=== PATIENT | male | born 1950 | race Caucasian/White ===

== ENCOUNTER 2017-01-11 09:45 | Outpatient (CLI) | payer OTHER, MEDICARE ==
[~2017-01-11] VITALS: Ht 162.6 cm; Wt 85.5 kg
[~2017-01-11 09:45] MED LIST: ANDRONATE200 MG/ML IM; ASPIRIN E.C. 8181 MG PO; CELEBREX 1100 MG/CAP PO; CELEBREX 200MG200 MG PO; CELEBREX100 MG PO; CLONAZEPAM1 MG PO; EFFEXOR 75M75 MG/TAB PO; EFFIENT10 MG PO; FENTANYL 25 MCG TD; FLEXERIL5 MG PO; GLUCOPHAGE500 MG/TAB PO; HYDROCHLOR50 MG PO; KLONOPIN 0.5MG0.5 MG PO; LOPID600 MG PO; LOPRESSOR 225 MG/TAB PO; LOPRESSOR 550 MG/TAB PO; LORTAB 5/500 501 TAB PO; LORTAB 7.5/5001 TAB PO; LYRICA 75MG CAP75 MG PO; MEDROL 4MG DOSPA4 MG PO; NITROSTAT0.4 MG/TAB SL; NORCO 325 MG-7.1 TAB PO; OMNICEF 300MG300 MG PO; PERCR 7.5 PO; PRINIVIL10 MG PO; PROBIOTIC FORMU1 CAP PO; PROCARDIA XL 6060 MG PO; REQUIP 0.5MG0.5 MG PO; REQUIP0.5 MG PO; VENLAFAXINE75 M1 PO; ZOCOR 20MG20 MG PO; ZOCOR10 MG PO
[2017-01-11 10:01] VITALS: BP 117/54; PULSE 58
[2017-01-11] MEDS ORDERED: PERCOCET 325 MG1 TAB PO (10:16)
[2017-01-11 11:15] VITALS: BP 122/75; PULSE 63
[2017-01-11 11:20] VITALS: BP 122/75; PULSE 65
[2017-01-11 11:30] VITALS: BP 137/82; PULSE 70
[2017-01-11 11:45] VITALS: BP 128/79; PULSE 71; TEMP 96.9
[2017-01-11 12:00] VITALS: BP 118/75; PULSE 67
== END 2017-01-11 12:18 | disposition home or self-care (01) ==
LOC: COL.RAD 09:45
DX: M47.22 Other spondylosis with radiculopathy, cervical region (principal); M48.02 Spinal stenosis, cervical region
CPT/HCPCS: Q9967

== ENCOUNTER 2017-03-14 11:15 | Outpatient (RCR) | payer OTHER, MEDICARE ==
[~2017-03-14 11:15] MED LIST changes: +PERCOCET 325 MG1 TAB PO
== END 2017-03-21 11:59 ==
LOC: WSPT 11:15
DX: M54.81 Occipital neuralgia (principal)
CPT/HCPCS: G8981-GP; G8982-GP

== ENCOUNTER 2017-08-21 12:21 | Outpatient (RCR) | payer OTHER | END 2017-11-19 | disposition home or self-care (01) | LOC: MKS.ESL.PT | DX: E11.42 Type 2 diabetes mellitus with diabetic polyneuropathy (principal) ==

== ENCOUNTER 2017-10-08 14:00 | Outpatient (RCR) | payer OTHER | END 2017-11-19 | disposition home or self-care (01) | LOC: MKS.ESL.PT | DX: E11.42 Type 2 diabetes mellitus with diabetic polyneuropathy (principal) ==

== ENCOUNTER → 2018-02-21 | Outpatient (CLI) | payer OTHER, MEDICARE | LOC: MHCPAIN 09:14 | DX: G89.29 Other chronic pain (principal); M47.817 Spondylosis without myelopathy or radiculopathy, lumbosacral region; M54.16 Radiculopathy, lumbar region; M53.3 Sacrococcygeal disorders, not elsewhere classified | CPT/HCPCS: G0463 ==

== ENCOUNTER 2018-10-21 13:17 | Outpatient (RCR) | payer OTHER, MEDICARE ==
[2019-01-06] MEDS ORDERED: EFFIENT10 MG PO (10:59)
[2019-01-06] MEDS ORDERED: MOBIC15 MG PO (10:59)
[2019-01-06] MEDS ORDERED: GLUCOPHAGE500 MG/TAB PO (11:06)
[2019-01-09] MEDS ORDERED: PROTONIX 40MG T40 MG PO (09:19)
[2019-01-09] MEDS ORDERED: FERROUS SU325 MG/TAB PO (09:28)
== END 2019-01-19 ==
LOC: MKS.ESL.PT
DX: E11.9 Type 2 diabetes mellitus without complications (principal); G63 Polyneuropathy in diseases classified elsewhere

== ENCOUNTER 2018-11-18 09:15 | Outpatient (RCR) | payer OTHER, MEDICARE ==
[2019-01-06] MEDS ORDERED: MOBIC15 MG PO (10:59)
[2019-01-06] MEDS ORDERED: EFFIENT10 MG PO (10:59)
[2019-01-06] MEDS ORDERED: GLUCOPHAGE500 MG/TAB PO (11:06)
[2019-01-09] MEDS ORDERED: PROTONIX 40MG T40 MG PO (09:19)
[2019-01-09] MEDS ORDERED: FERROUS SU325 MG/TAB PO (09:28)
== END 2019-01-19 | disposition home or self-care (01) ==
LOC: MKS.ESL.PT
DX: E11.9 Type 2 diabetes mellitus without complications (principal); G63 Polyneuropathy in diseases classified elsewhere

== ENCOUNTER 2019-01-06 09:36 | Inpatient (IN) | payer OTHER, MEDICARE ==
[~2019-01-06] VITALS: Ht 162.6 cm; Wt 68.4 kg
[2019-01-06] VITALS (395 sets, daily range): BP systolic 147–153; BP diastolic 85–89; PULSE 105–109; TEMP 98.1–98.8; O2SAT 94–100
[2019-01-06 10:24] LABS: BASO % 0.5 % (0.0-2.0); GRAN % 75.9 % (42.2-75.2); HEMATOCRIT 44.1 % (42.0-52.0); HEMOGLOBIN 14.7 g/dl (13.5-18.0); LYMPH # 1.5 (1.2-3.4); LYMPH % 18.6 % (20.0-51.0); MEAN CELL VOLUME 94 fl (80.0-100.0); MEAN CORPUSCULAR HEMOGLOBIN 31 pg (27.0-31.0); MEAN CORPUSCULAR HGB CONC 33 g/dl (33.0-37.0); MEAN PLATELET VOLUME 10.4 fl (7.4-10.4); MONO # 0.4 (0.1-0.6); MONO % 4.6 % (1.7-9.3); PLATELET COUNT 189 K/mm3 (130-400); RED BLOOD COUNT 4.68 M/mm3 (4.20-5.60); REDCELL DISTRIBUTION WIDTH-CV 12.9 % (11.5-14.5)
[2019-01-06 10:35] LABS: ALBUMIN 4.5 gm/dL (3.5-5.0); BILIRUBIN,TOTAL 0.5 mg/dL (0.0-1.0); C-REACTIVE PROTEIN 0.6 mg/dL (0.0-0.9); CALCIUM 9.9 mg/dL (8.4-10.2); CREATININE, serum 1.46 (0.66-1.25)
[2019-01-06 10:36] LABS: POTASSIUM 5.8 mmol/L (3.4-5.0)
[2019-01-06] MEDS ORDERED: EFFIENT10 MG PO (10:59)
[2019-01-06] MEDS ORDERED: MOBIC15 MG PO (10:59)
[2019-01-06] MEDS ORDERED: GLUCOPHAGE500 MG/TAB PO (11:06)
[2019-01-06 12:04] LABS: COLLECTION METHOD CLEAN CATCH
[2019-01-06 12:10] LABS: PH 6 (5-8); SQUAMOUS EPITHELIAL None Seen /hpf; URINE APPEARANCE Clear; URINE BACTERIA None Seen /hpf; URINE BILIRUBIN Negative (NEGATIVE); URINE BLOOD 1+ (NEGATIVE); URINE COLOR Straw; URINE GLUCOSE Negative (NEGATIVE); URINE KETONE 1+ (NEGATIVE); URINE LEUKOCYTE ESTERASE Negative (NEGATIVE); URINE NITRATE Negative (NEGATIVE); URINE PROTEIN(semi-quant) Negative (NEGATIVE); URINE RBC 0-2 /hpf; URINE UROBILINOGEN Negative (NEGATIVE)
[2019-01-06 13:33] LABS: CALCIUM 8.9 mg/dL (8.4-10.2); CREATININE, serum 1.33 (0.66-1.25)
[2019-01-06 13:37] LABS: POTASSIUM 6.1 mmol/L (3.4-5.0)
--- NOTE | 2019-01-06 15:30 | NUR ---
PATIENT ARRIVES FROM ED AT THIS TIME. HE AMBULATES FROM CART TO BED. NO S/S DIZZINESS OR WEAKNESS. HE IS PALE AND DIAPHORETIC. VS WNL. ST ON TELE. PATIENT ORIENTED TO ROOM AND CALL LIGHT WITHIN REACH. WILL CONTINUE TO MONITOR.
[2019-01-06 16:07] LABS: HEMATOCRIT 35.1 % (42.0-52.0); HEMOGLOBIN 11.7 g/dl (13.5-18.0)
--- NOTE | 2019-01-06 17:12 | NUR ---
DR. EUCEDA HERE TO SEE PATIENT
[2019-01-06 18:33] LABS: INR 1.1 (0.8-3.0); PROTHROMBIN TIME 12.6 SECONDS (9.7-12.8)
[2019-01-06 19:50] LABS: CREATININE, serum 1.27 (0.66-1.25); POTASSIUM 4.6 mmol/L (3.4-5.0)
[2019-01-06 19:52] LABS: HEMOGLOBIN 11.9 g/dl (13.5-18.0)
[2019-01-06 19:56] LABS: HEMATOCRIT 35.5 % (42.0-52.0)
[2019-01-07] VITALS (970 sets, daily range): BP systolic 141–203; BP diastolic 74–93; PULSE 75–127; TEMP 97.4–98.9; O2SAT 93–100
[2019-01-07 01:17] LABS: HEMATOCRIT 33.8 % (42.0-52.0); HEMOGLOBIN 11.4 g/dl (13.5-18.0)
[2019-01-07 05:40] LABS: BASO % 0.3 % (0.0-2.0); GRAN # 4.9 (1.4-6.5); GRAN % 61.5 % (42.2-75.2); LYMPH # 2.3 (1.2-3.4); LYMPH % 29.4 % (20.0-51.0); MEAN CELL VOLUME 94 fl (80.0-100.0); MEAN CORPUSCULAR HEMOGLOBIN 32 pg (27.0-31.0); MEAN CORPUSCULAR HGB CONC 34 g/dl (33.0-37.0); MEAN PLATELET VOLUME 10.4 fl (7.4-10.4); MONO # 0.7 (0.1-0.6); MONO % 8.4 % (1.7-9.3); PLATELET COUNT 163 K/mm3 (130-400); RED BLOOD COUNT 3.46 M/mm3 (4.20-5.60); REDCELL DISTRIBUTION WIDTH-CV 13.2 % (11.5-14.5)
[2019-01-07 05:42] LABS: HEMATOCRIT 32.4 % (42.0-52.0)
[2019-01-07 06:00] LABS: ALBUMIN 3.5 gm/dL (3.5-5.0); BILIRUBIN,TOTAL 0.3 mg/dL (0.0-1.0); CREATININE, serum 1.38 (0.66-1.25); POTASSIUM 4.4 mmol/L (3.4-5.0); TOTAL PROTEIN 5.5 gm/dL (6.4-8.2)
--- NOTE | 2019-01-07 07:20 | NUR ---
gave report to aura orozco.
--- NOTE | 2019-01-07 07:25 | NUR ---
Pt off unit to Endo for procedure
--- NOTE | 2019-01-07 09:17 | NUR ---
Initial visit; Patient thanked [employer] for looking in on him and offering God's blessings.
[2019-01-07 16:13] LABS: HEMOGLOBIN 10.2 g/dl (13.5-18.0)
[2019-01-07 16:22] LABS: HEMATOCRIT 30.5 % (42.0-52.0)
[2019-01-08] VITALS (175 sets, daily range): BP systolic 134–155; BP diastolic 64–100; PULSE 73–107; TEMP 97.6–98.8; O2SAT 95–100
[2019-01-08 06:14] LABS: BASO % 0.4 % (0.0-2.0); GRAN # 4.4 (1.4-6.5); GRAN % 65.7 % (42.2-75.2); LYMPH # 1.8 (1.2-3.4); LYMPH % 26.8 % (20.0-51.0); MEAN CELL VOLUME 96 fl (80.0-100.0); MEAN CORPUSCULAR HGB CONC 33 g/dl (33.0-37.0); MEAN PLATELET VOLUME 10.6 fl (7.4-10.4); MONO # 0.5 (0.1-0.6); MONO % 6.7 % (1.7-9.3); PLATELET COUNT 142 K/mm3 (130-400); REDCELL DISTRIBUTION WIDTH-CV 13.2 % (11.5-14.5)
[2019-01-08 06:15] LABS: HEMATOCRIT 27.7 % (42.0-52.0); HEMOGLOBIN 9.1 g/dl (13.5-18.0); MEAN CORPUSCULAR HEMOGLOBIN 31 pg (27.0-31.0)
[2019-01-08 06:22] LABS: ALBUMIN 3.4 gm/dL (3.5-5.0); BILIRUBIN,TOTAL 0.3 mg/dL (0.0-1.0); CALCIUM 8.9 mg/dL (8.4-10.2); CREATININE, serum 1.39 (0.66-1.25); MAGNESIUM 1.4 mg/dL (1.6-2.3); POTASSIUM 4.5 mmol/L (3.4-5.0); TOTAL PROTEIN 5.5 gm/dL (6.4-8.2)
--- NOTE | 2019-01-08 07:20 | NUR ---
Bedside shift report received from DRU Aly. Patient taken to colonoscopy by 2 Endoscopy nurses at this time. Assessment to be completed upon patient return to ICU post procedure.
--- NOTE | 2019-01-08 08:06 | NUR ---
Endoscopy report received from RN at this time. Patient tolerated procedure well and will be transferred back to ICU bed 4.
--- NOTE | 2019-01-08 08:10 | NUR ---
Patient transferred back into ICU by 2 Endo nurses with no complications. Patient connected to bedside monitor, vital signs stable. Full assessment completed. Call light placed within reach. Side rails up x3. Bed in lowest position.
--- NOTE | 2019-01-08 10:00 | NUR ---
Dr. Escalante notified of patient's heart rate in the 120's. Verbal order received from Dr. Escalante to increase the patient's high telemetry alarm limit to 130 at this time.
--- NOTE | 2019-01-08 10:59 | NUR ---
SW met with patient and to discuss discharge planning. Patient reports he lives alone currently because him and his are separted. Patient's continue to be supportive as well as patient's daughter and brother. Patient's PCP is Dr Krishna and he obtains prescriptions from [facility]. Patient denies difficulties obtaining medications. Patient rpeorts he has a cane and walker at home if needed. Patient and report independence with all ADLs and does not use any home health services. Patient reports his is his DPOA-HC. Patient is not interested in changing or updating his DPOA-HC. A copy is in the EMR. [facility] informed that patient is looking for new low income housing. [facility] provided the phone number for the [employer] [employer]. Patient and report they have already been in contact with the [employer] [employer]. [facility] does not anticipate any discharge needs but will continue to follow.
--- NOTE | 2019-01-08 16:48 | NUR ---
Patient transferred to medical bed 308 via wheelchair with no complications. All personal belongings moved with patient. Once in room 308, bed in lowest position, call light placed within reach, and side rails up x2. Patient is ambulatory and independent. Care handed over to medical RN at this time.
--- NOTE | 2019-01-08 17:35 | NUR ---
Pt assessment complete. Pt is walking independent in room. He is A/O x3. His breathing is even and unlabored on RA. Lungs CTA. Pt denies SOB. Pt currently denies any pain. No N/V. He does report that he is passing gas. POC discussed with patient who verbalizes understanding. No needs at this time. Call light within reach.
[2019-01-08 21:31] LABS: HEMATOCRIT 27.3 % (42.0-52.0); HEMOGLOBIN 9.1 g/dl (13.5-18.0)
--- NOTE | 2019-01-08 22:08 | NUR ---
Report received from DRU Basilio. Patient resting in bed. Denies having any pain at this time. Bowels active. Alert and oriented. Pulses strong. IV patent, flushed. Denies any further needs at this time. Call light within reach.
[2019-01-09 00:10] VITALS: BP 131/50; PULSE 85; TEMP 98.9
[2019-01-09 03:11] VITALS: BP 122/77; PULSE 88; TEMP 99.2
--- NOTE | 2019-01-09 05:45 | NUR ---
Patient had very uneventful night. Patient resting in bed. No insulin required. Denied any needs throughout the night. Call light within reach.
[2019-01-09 06:21] LABS: BASO % 0.5 % (0.0-2.0); GRAN # 3.5 (1.4-6.5); GRAN % 57.9 % (42.2-75.2); LYMPH % 33.4 % (20.0-51.0); MEAN CELL VOLUME 94 fl (80.0-100.0); MEAN CORPUSCULAR HGB CONC 34 g/dl (33.0-37.0); MEAN PLATELET VOLUME 10.5 fl (7.4-10.4); MONO # 0.5 (0.1-0.6); PLATELET COUNT 149 K/mm3 (130-400); RED BLOOD COUNT 2.88 M/mm3 (4.20-5.60); REDCELL DISTRIBUTION WIDTH-CV 13.2 % (11.5-14.5)
[2019-01-09 06:34] LABS: CALCIUM 9.6 mg/dL (8.4-10.2); CREATININE, serum 1.34 (0.66-1.25); MAGNESIUM 1.5 mg/dL (1.6-2.3)
[2019-01-09 06:41] LABS: HEMATOCRIT 27.1 % (42.0-52.0); HEMOGLOBIN 9.1 g/dl (13.5-18.0); MEAN CORPUSCULAR HEMOGLOBIN 32 pg (27.0-31.0)
--- NOTE | 2019-01-09 06:48 | NUR ---
Report given to DRU Basilio.
[2019-01-09 07:27] VITALS: BP 140/71; PULSE 95; TEMP 97.3
--- NOTE | 2019-01-09 07:48 | NUR ---
Pt assessment complete. Pt is up walking in room this AM. He is independent in room. He is A/O x3. His breathing is even and unlabored on RA, pt denies any SOB at rest or with exertion. He denies N/V, states he does not want to eat, pt talked into trying jello. Pt assisted in getting in the shower this morning, linens changed. Will continue to monitor.
[2019-01-09] MEDS ORDERED: PROTONIX 40MG T40 MG PO (09:19)
[2019-01-09] MEDS ORDERED: FERROUS SU325 MG/TAB PO (09:28)
--- NOTE | 2019-01-09 10:21 | NUR ---
The patient is to discharge back home today, 01/09. He states that he has an appointment with [facility] next Saturday. SW presented and explained the IM form to the patient. The patient verbalized understanding and gave SW his verbal consent. He states his hand has some nerve damage. SW provided the patient with a copy. No additional needs at this time.
[2019-01-09 11:43] VITALS: BP 145/79; PULSE 80; TEMP 97.9
--- NOTE | 2019-01-09 14:00 | NUR ---
Discharge paperwork and instructions reviewed with patient, all questions answered at this time. IV to LH catheter tip intact. Pt wheeled out at this time.
== END 2019-01-09 14:00 | disposition home or self-care (01) | DRG 378 ==
LOC: COL.ER 09:36 → MEDICAL 12:16 → ICU 12:16 → MEDICAL 01-08 16:48
PROVIDERS: Family Medicine; Internal Medicine; Internal Medicine Gastroenterology; Nurse Practitioner Family; ADMIT Family Medicine
PROC: 0DB68ZX Excision of Stomach, Via Natural or Artificial Opening Endoscopic, Diagnostic (ICD-10-PCS; principal; 2019-01-07 07:30)
PROC: 0DJD8ZZ Inspection of Lower Intestinal Tract, Via Natural or Artificial Opening Endoscopic (ICD-10-PCS; 2019-01-08)
DX: K26.4 Chronic or unspecified duodenal ulcer with hemorrhage (principal); D62 Acute posthemorrhagic anemia; N17.9 Acute kidney failure, unspecified; I25.10 Atherosclerotic heart disease of native coronary artery without angina pectoris; E11.9 Type 2 diabetes mellitus without complications; I10 Essential (primary) hypertension; K21.9 Gastro-esophageal reflux disease without esophagitis; M48.00 Spinal stenosis, site unspecified; G89.29 Other chronic pain; E87.5 Hyperkalemia; E83.42 Hypomagnesemia; T39.395A Adverse effect of other nonsteroidal anti-inflammatory drugs [NSAID], initial encounter; Z88.5 Allergy status to narcotic agent; I25.2 Old myocardial infarction; Z95.5 Presence of coronary angioplasty implant and graft; Z87.891 Personal history of nicotine dependence; Z79.891 Long term (current) use of opiate analgesic; Z79.84 Long term (current) use of oral hypoglycemic drugs; K64.0 First degree hemorrhoids; K57.30 Diverticulosis of large intestine without perforation or abscess without bleeding; K44.9 Diaphragmatic hernia without obstruction or gangrene
CPT/HCPCS: 99223-AI; 99232-AI; 99233-AI; 99239; C9113; J0610; J1815; J2250; J2270; J2405; J2704; J2765; J3010; J3475; J7030; J7120

== ENCOUNTER 2020-09-10 10:41 | Emergency (ER) | payer MEDICARE ==
[~2020-09-10] VITALS: Ht 162.6 cm; Wt 86.4 kg
[~2020-09-10 10:41] MED LIST changes: +FERROUS SU325 MG/TAB PO; +MOBIC15 MG PO; +PROTONIX 40MG T40 MG PO
[2020-09-10 10:50] VITALS: TEMP 97.7
[2020-09-10 11:18] LABS: BASO % 0.5 % (0.0-2.0); EOS % 0.2 % (0-4.0); GRAN # 4.5 (1.4-6.5); GRAN % 70.4 % (42.2-75.2); HEMATOCRIT 44.5 % (42.0-52.0); HEMOGLOBIN 14.9 g/dl (13.5-18.0); LYMPH # 1.1 (1.2-3.4); LYMPH % 17.6 % (20.0-51.0); MEAN CELL VOLUME 94 fl (80.0-100.0); MEAN CORPUSCULAR HEMOGLOBIN 32 pg (27.0-31.0); MEAN CORPUSCULAR HGB CONC 34 g/dl (33.0-37.0); MEAN PLATELET VOLUME 10.7 fl (7.4-10.4); MONO # 0.7 (0.1-0.6); MONO % 11.1 % (1.7-9.3); PLATELET COUNT 152 K/mm3 (130-400); RED BLOOD COUNT 4.72 M/mm3 (4.20-5.60); REDCELL DISTRIBUTION WIDTH-CV 12.8 % (11.5-14.5)
[2020-09-10 11:27] LABS: ALBUMIN 4.3 gm/dL (3.5-5.0); BILIRUBIN,TOTAL 0.5 mg/dL (0.0-1.0); CALCIUM 9.7 mg/dL (8.4-10.2); CREATININE, serum 1.45 (0.66-1.25); POTASSIUM 4.5 mmol/L (3.4-5.0); TOTAL PROTEIN 7.3 gm/dL (6.4-8.2)
[2020-09-10 12:15] VITALS: BP 139/79; PULSE 80
[2021-03-10] MEDS ORDERED: EFFEXOR 50M50 MG/TAB PO (08:32)
[2021-03-10] MEDS ORDERED: LYRICA 150MG C150 MG PO (08:33)
[2021-03-10] MEDS ORDERED: PLAVIX 75MG TAB75 MG PO (08:36)
[2021-03-10] MEDS ORDERED: OMEGA-31 SGL PO (08:37)
[2021-03-10] MEDS ORDERED: VITAMIN D31000 I1 PO (08:37)
[2021-03-10] MEDS ORDERED: VITAMIN B12 1541 TAB PO (08:38)
[2021-03-10] MEDS ORDERED: IRON TABLETS325 MG PO (08:39)
== END 2020-09-10 12:15 | disposition home or self-care (01) ==
LOC: COL.ER 10:41
PROVIDERS: Physician Assistant
DX: B34.9 Viral infection, unspecified (principal); I25.10 Atherosclerotic heart disease of native coronary artery without angina pectoris; I10 Essential (primary) hypertension; E11.9 Type 2 diabetes mellitus without complications; E78.5 Hyperlipidemia, unspecified; Z20.822 Contact with and (suspected) exposure to COVID-19; Z86.79 Personal history of other diseases of the circulatory system; Z95.5 Presence of coronary angioplasty implant and graft; Z79.84 Long term (current) use of oral hypoglycemic drugs

== ENCOUNTER 2021-03-14 09:52 | Outpatient (CLI) | payer MEDICARE ==
[~2021-03-14] VITALS: Ht 162.6 cm; Wt 87.2 kg
[2021-03-14] VITALS (7 sets, daily range): BP systolic 123–142; BP diastolic 78–86; PULSE 56–68; TEMP 97.8
[~2021-03-14 09:52] MED LIST changes: +EFFEXOR 50M50 MG/TAB PO; +IRON TABLETS325 MG PO; +LYRICA 150MG C150 MG PO; +OMEGA-31 SGL PO; +PLAVIX 75MG TAB75 MG PO; +VITAMIN B12 1541 TAB PO; +VITAMIN D31000 I1 PO
== END 2021-03-14 12:41 | disposition home or self-care (01) ==
LOC: COL.RAD 09:52
DX: M51.16 Intervertebral disc disorders with radiculopathy, lumbar region (principal); M48.061 Spinal stenosis, lumbar region without neurogenic claudication
CPT/HCPCS: Q9965

== ENCOUNTER → 2021-04-21 | Outpatient (CLI) | payer MEDICARE | LOC: COL.RAD 12:55 | DX: G57.10 Meralgia paresthetica, unspecified lower limb (principal) | CPT/HCPCS: Q9967 ==

== ENCOUNTER → 2021-05-09 | Outpatient (CLI) | payer MEDICARE | LOC: COL.VAS 11:59 | DX: I73.9 Peripheral vascular disease, unspecified (principal); G57.10 Meralgia paresthetica, unspecified lower limb ==

== ENCOUNTER 2021-11-08 08:00 | Outpatient (RCR) | payer MEDICARE, OTHER | END 2021-11-16 | disposition still patient (30) | LOC: MKS.ESL.PT | DX: S46.912A Strain of unspecified muscle, fascia and tendon at shoulder and upper arm level, left arm, initial encounter (principal) ==

== ENCOUNTER 2021-12-08 11:15 | Outpatient (RCR) | payer MEDICARE, OTHER | END 2021-12-17 | disposition home or self-care (01) | LOC: MKS.ESL.PT | DX: S29.019D Strain of muscle and tendon of unspecified wall of thorax, subsequent encounter (principal); X58.XXXD Exposure to other specified factors, subsequent encounter ==

== ENCOUNTER 2021-12-22 11:17 | Outpatient (RCR) | payer MEDICARE, OTHER | END 2022-01-17 | disposition home or self-care (01) | LOC: MKS.ESL.PT | DX: S29.019D Strain of muscle and tendon of unspecified wall of thorax, subsequent encounter (principal) ==

== ENCOUNTER 2022-09-13 15:43 | Outpatient (RCR) | payer MEDICARE | END 2022-09-13 15:46 | LOC: MKS.ESL.PT 15:43 | DX: M54.2 Cervicalgia (principal) ==

== ENCOUNTER 2023-02-14 09:00 | Outpatient (RCR) | payer MEDICARE | END 2023-02-16 | disposition home or self-care (01) | LOC: WSPT | DX: M75.122 Complete rotator cuff tear or rupture of left shoulder, not specified as traumatic (principal) ==